=== PATIENT | male | born 1970 | race Caucasian/White ===

== ENCOUNTER → 2023-07-14 | Outpatient (CLI) | payer BC ==
--- NOTE | 2023-07-14 15:05 | MR ---
EXAM: MR liver wo/w con EXAM DATE AND TIME: HISTORY: Hyperbilirubinemia. PROCEDURE: Unenhanced and contrast enhanced, multiplanar, multisequence images were obtained through the abdomen and pelvis. CONTRAST: The IV contrast dose was 11 mL of gadobutrol. No immediate adverse reaction to the contras t material was reported. COMPARISON: None available. FINDINGS: IMAGED PORTION OF THE CHEST The imaged portion of the chest is unremarkable. ABDOMEN OVERVIEW: The images in this region are of adequate diagnostic quality. LIVER: There is diffuse loss of signal intensity on the T1 out of phase images when compared to t he in phase images compatible fatty liver infiltration. The liver is enlarged measuring 18.5 cm in cr aniocaudal dimension BILE DUCTS: Unremarkable. GALLBLADDER: Unremarkable. PANCREAS: Unremarkable. SPLEEN: Unremarkable. ADRENAL GLANDS: Unremarkable. RIGHT KIDNEY: Unremarkable. RIGHT URETER: Unremarkable. LEFT KIDNEY: Unremarkable. LEFT URETER: Unremarkable. ABDOMINAL AORTA: Unremarkable. ABDOMINAL VENOUS SYSTEM: Unremarkable. ABDOMINAL LYMPH NODES: Unremarkable. STOMACH: Unremarkable. SMALL BOWEL: Unremarkable. APPENDIX: Unremarkable. LARGE BOWEL: Unremarkable. MESENTERY AND OMENTUM: Unremarkable. PERITONEUM: Unremarkable. IMPRESSION 1. Mild hepatomegaly and mild hepatic steatosis. 2. No biliary ductal dilation. 3. No acute findings.
--- NOTE | 2023-07-14 18:13 | CA ---
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 18 - 58 / 22 - 52 cm??? LA Volume Index 26.6 cm???/m??? 16 - 28 cm???/m??? M-MODE Aortic Root Diameter MM 2.7 cm LA Systolic Diameter MM 4.0 cm LA Ao Ratio MM 1.5 AV Cusp Separation MM 2.1 cm DOPPLER AV Peak Velocity 139.9 cm/s AV Peak Gradient 7.8 mmHg AV Mean Velocity 100.5 cm/s AV Mean Gradient 4.4 mmHg AV Velocity Time Integral 24.9 cm LVOT Peak Velocity 135.2 cm/s LVOT Peak Gradient 7.3 mmHg LVOT Velocity Time Integral 25.1 cm MV Area PHT 3.2 cm??? Mitral E Point Velocity 87.4 cm/s Mitral A Point Velocity 100.0 cm/s Mitral E to A Ratio 0.9 MV Deceleration Time 233.8 ms MV E' Velocity 6.7 cm/s Mitral E to MV E' Ratio 13.1 FINDINGS Left Ventricle Severely increased left ventricular wall thickness. Left ventricular cavity size normal. Normal left ventricular systolic function with no obvious regional wall motion abnormalities. Left ventricular ejection fraction is estimated at 55-60 %. Grade 1 diastolic dysfunction. Right Ventricle Mild right ventricular dilatation. Right ventricular systolic pressure within normal limits. Right Atrium Normal right atrial size. Left Atrium Mildly increased left atrial volume. Interatrial septal aneurysm. Mitral Valve Structurally normal mitral valve. Mild mitral annular calcification. No mitral stenosis. Mild mitral regurgitation. Aortic Valve No aortic valve stenosis or regurgitation. Trileaflet aortic valve. Tricuspid Valve Structurally normal tricuspid valve. Mild tricuspid regurgitation. Pulmonic Valve Structurally normal pulmonic valve. Pericardium No pericardial effusion. Aorta Normal size aortic root and proximal ascending aorta. CONCLUSIONS Normal LV systolic function. Concentric left ventricular hypertrophy Normal pulmonary artery systolic pressure. Mildly dilated right ventricle Trileaflet aortic valve with no stenosis or regurgitation Normal mitral valve leaflets with mild MR Cannot rule out interatrial shunt Previewed by: Dr. Vargas Loving MD (Electronically Signed) Final Date: 14 July 2023 18:12
== END | disposition home or self-care (01) ==
LOC: RADECHMAIN 13:08
PROVIDERS: ATTEND Family Medicine
DX: K76.0 Fatty (change of) liver, not elsewhere classified (principal); I34.0 Nonrheumatic mitral (valve) insufficiency; E80.6 Other disorders of bilirubin metabolism; I45.10 Unspecified right bundle-branch block; I51.7 Cardiomegaly; R16.0 Hepatomegaly, not elsewhere classified
CPT/HCPCS: 93306; 74183; A9585

== ENCOUNTER 2024-11-23 23:54 | Emergency (ER) | payer BC ==
--- NOTE | 2024-11-24 01:17 | ED ---
General Adult HPI - General Chief complaint: Abdominal Pain Stated complaint: Abd Pain Time Seen by Provider: 11/24/24 00:27 Source: patient Mode of arrival: ambulatory Limitations: no limitations - History of Present Illness Initial comments: Patient is a previous healthy 54-year-old past medical history hypertension presenting today for left groin pain. Patient states he first noticed the pain on Monday after lifting wood. Described as sharp and as "a muscle spasm". It resolved spontaneously however today patient was lifting wood again and the pain returned. He denies any nausea, vomiting, fevers, chills, chest pain, shortness of breath, diarrhea, constipation, difficulty urinating, burning with urination or hematuria. The pain does not radiate to his testicles or penis. He has no prior abdominal surgeries. Took ibuprofen for pain without relief. No overlying skin changes. - Related Data Previous Rx's Medication Instructions Recorded Cyclobenzaprine [Flexeril] 10 mg PO TID PRN 5 Days #20 tab 11/24/24 Allergies Allergy/AdvReac Type Severity Reaction Status Date / Time No Known Allergies Allergy Verified 11/24/24 00:02 Review of Systems ROS Statement: Those systems with pertinent positive or pertinent negative responses have been documented in the HPI. ROS Other: All systems not noted in ROS Statement are negative. Past Medical History Past Medical History: Hypertension, Thyroid Disorder Additional Past Medical History / Comment(s): seasonal allergies History of Any Multi-Drug Resistant Organisms: None Reported Past Surgical History: Orthopedic Surgery Additional Past Surgical History / Comment(s): knee Past Psychological History: No Psychological Hx Reported Smoking Status: Never smoker Past Alcohol Use History: Occasional Past Drug Use History: Marijuana General Exam - General Exam Comments Initial Comments: PE: Limited as patient was seen in a hallway bed CONSTITUTIONAL: No apparent distress, well appearing SKIN: Warm, dry, no jaundice, hives or petechiae EYES: Pupils are equally round, extraocular movements intact without nystagmus, clear conjunctiva, non-icteric sclera HENT: Normocephalic, atraumatic, moist mucus membranes, oropharynx clear without exudates NECK: , Full range of motion, normal appearance PULMONARY: Clear to auscultation without wheezes, rhonchi, or rales, normal excursion, no accessory muscle use and no stridor CARDIOVASCULAR: Regular rate, rhythm, normal S1 and S2. No appreciated murmurs, rubs or gallops. Strong radial pulses with intact distal perfusion. No lower extremity edema GASTROINTESTINAL: Soft, active bowel sounds throughout, non-tender, non- distended, no palpable masses, no rebound or guarding. No hepatosplenomegaly left groin was examined I see no evidence of skin changes, no tenderness palpation, no bulging or palpable hernia GENITOURINARY: MUSCULOSKELETAL: Extremities have no gross deformity, no edema, redness, or swelling. NEUROLOGIC:_a/o x 3, GCS 15, normal mentation and speech. Moves all extremities x 4 without motor or sensory deficit PSYCHIATRIC:_normal mood and affect, thought process is clear and linear Limitations: no limitations Course Vital Signs 11/24/24 11/24/24 00:03 03:22 Temperature 97.9 F 97.8 F Pulse Rate 75 69 Respiratory 16 117 H Rate Blood Pressure 147/70 125/80 O2 Sat by Pulse 96 95 Oximetry Medical Decision Making - Medical Decision Making Was pt. sent in by a medical professional or institution (, PA, [employer], urgent care, hospital, or group home...) When possible be specific @ -No Did you speak to anyone other than the patient for history (EMS, parent, family, police, friend...)? What history was obtained from this source @ -No Did you review nursing and triage notes (agree or disagree)? Why? @ -I reviewed nursing and triage notes Were old charts reviewed (outside hosp., previous admission, EMS record, old EKG, old radiological studies, urgent care reports/EKG's, group home records)? Report findings @ -Medical records reviewed-Patient had a liver MRI done in 2023 which showed mild hepatomegaly and mild hepatic steatosis Differential Diagnosis (chest pain, altered mental status, abdominal pain women, abdominal pain men, vaginal bleeding, weakness, fever, dyspnea, syncope, headache, dizziness, GI bleed, back pain, seizure, CVA, palpatations, mental health, musculoskeletal)? @Differential Abdominal Pain Men: Appendicitis, cholecystitis, diverticulosis, ischemic bowel, pancreatitis, hepatitis, UTI, gastroenteritis, AAA, incarcerated hernia, bowel obstruction, constipation, inflammatory bowel, peptic ulcer disease, splenic infarction, perforated viscus, testicular torsion, this is not meant to be an all-inclusive list. Of note patient denies any pain or radiation of pain to his testicles or penis, therefore at this time I did not feel ultrasound was warranted to further evaluate for testicular torsion. Patient did decline testicular exam. EKG interpreted by me (3pts min.). @ -As above X-rays interpreted by me (1pt min.). @ -None done CT interpreted by me (1pt min.). Personally reviewed CT scan, I see no evidence of incarcerated hernia, bowel obstruction or perforation I agree with radiologist interpretation U/S interpreted by me (1pt. min.). @ -None done What testing was considered but not performed or refused? (CT, X-rays, U/S, labs)? Why? @ -None What meds were considered but not given or refused? Why? @ -None Did you discuss the management of the patient with other professionals (professionals i.e. , PA, [employer], lab, RT, psych nurse, social media marketing specialist, vice president financial, teacher, benefits officer, supervisor case loading)? Give summary @ -No Was smoking cessation discussed for >3mins.? @ -No Was critical care preformed (if so, how long)? @ -No Were there social determinants of health that impacted care today? How? (Homelessness, low income, unemployed, alcoholism, drug addiction, transport ation, low edu. Level, literacy, decrease access to med. care, fci, rehab)? @ -No Was there de-escalation of care discussed even if they declined (Discuss DNR or withdrawal of care, Hospice)? @ -No What co-morbidities impacted this encounter? (DM, HTN, Smoking, COPD, CAD, Cancer, CVA, ARF, Chemo, Hep., AIDS, mental health diagnosis, sleep apnea, morbid obesity)? @ -None Was patient admitted / discharged? Hospital course, mention meds given and route, prescriptions, significant lab abnormalities, going to OR and other pertinent info. @ -Discharged -patient is a pleasant 54-year-old gentleman, no prior surgical history presenting for left groin pain after lifting wood. Patient initially seen and assessed in hallway bed due to shortage of beds throughout the ER. He was agreeable with me performing assessment in the hallway. Exam was notable for no to tenderness palpation, bulging, swelling or skin changes overlying the left groin. Out of concern for possible hernia, due to provided history, will obtain CT abdomen pelvis, labs, lactic, patient will receive pain medications. Labs were reviewed and significant for mild leukocytosis white blood count 12.10, there is an elevation in neutrophils 8.76, urinalysis is negative nitrates and negative leukocyte esterase without bacteria, lactic within normal at 1.2, metabolic panel overall unremarkable CT was significant for bilateral fat-containing hernias otherwise no acute process. Updated patient to findings, did discuss with pt performing testicular exam to further evaluate his pain, however he politely declined. I discussed with patient signs and symptoms to monitor for warranting return to the ER such as redness or skin changes overlying the area of pain, failure pain to improve over the next 48 hours, fevers, vomiting or no bowel movement greater than 48 hours. He was agreeable and comfortable with plan for discharge. He was provided general surgery follow-up regarding fat-containing hernias noted on CT. In my medical judgment there is currently no evidence of an immediate life- threatening or surgical condition. Discharge is therefore indicated at this time. Discharge treatment instructions, follow up instructions, and appropriate emergency department return precautions were discussed with the patient and/or medical decision maker. Patient and/or medical decision maker expressed understanding of and agreed with the treatment plan, follow up instructions, and emergency department return precaution. All patient's and/or medical decision maker's questions were answered. The patient was advised that a small risk still exists that a serious condition could develop and was therefore instructed to return to the ED for any changes in symptoms, persistent symptoms, inability to obtain proper follow-up or for any further concerns. Patient received verbal and written instructions for this condition. Undiagnosed new problem with uncertain prognosis? @ -No Drug Therapy requiring intensive monitoring for toxicity (Heparin, Nitro, Insulin, Cardizem)? @ -No Were any procedures done? @ -No Diagnosis/symptom? Left inguinal pain, muscle strain, fat-containing inguinal hernias Acute, or Chronic, or Acute on Chronic? @ -Acute Uncomplicated (without systemic symptoms) or Complicated (systemic symptoms)? @Uncomplicated Side effects of treatment? @ -No Exacerbation, Progression, or Severe Exacerbation? @ -No Poses a threat to life or bodily function? How? (Chest pain, [place], [place], pneumonia, PE, COPD, DKA, ARF, appy, cholecystitis, CVA, Diverticulitis, Homicidal, Suicidal, threat to staff... and all critical care pts) @ -No - Lab Data Result diagrams: 11/24/24 01:20 11/24/24 01:20 Lab Results 11/24/24 11/24/24 11/24/24 Range/Units 01:20 01:20 01:20 WBC 12.10 H (4.50-10.00) 10*3/uL RBC 4.73 (4.40-5.60) 10*6/uL Hgb 14.5 (13.0-17.0) g/dL Hct 42.8 (39.6-50.0) % MCV 90.5 (80.0-97.0) fL MCH 30.7 (27.0-32.0) pg MCHC 33.9 (32.0-37.0) g/dL Plt Count 312 (140-440) 10*3/uL MPV 9.3 L (9.5-12.2) fL Immature Gran % (Auto) 0.6 % Neutrophils % 72.5 % Lymphocytes % 14.6 % Monocytes % 8.5 % Eosinophils % 3.1 % Basophils % 0.7 % Immature Gran # 0.07 H (0.00-0.04) 10*3/uL Neutrophils # 8.76 H (1.80-7.70) 10*3/uL Lymphocytes # 1.77 (0.90-5.00) 10*3/uL Monocytes # 1.03 H (0.20-1.00) 10*3/uL Eosinophils # 0.38 H (0.04-0.35) 10*3/uL Basophils # 0.09 (0.00-0.10) 10*3/uL PT 10.4 (10.0-12.5) sec INR 0.9 (<1.2) APTT 26.5 (22.0-30.0) sec Sodium (137-145) mmol/L Potassium (3.5-5.1) mmol/L Chloride (98-107) mmol/L Carbon Dioxide (22-30) mmol/L Anion Gap mmol/L BUN (9-20) mg/dL Creatinine (0.66-1.25) mg/dL Est GFR (CKD-EPI)AfAm (>60 ml/min/1.73 sqM) Est GFR (CKD-EPI)NonAf (>60 ml/min/1.73 sqM) Glucose (74-99) mg/dL Plasma Lactic Acid Julius (0.7-2.0) mmol/L Calcium (8.4-10.2) mg/dL Total Bilirubin (0.2-1.3) mg/dL AST (17-59) U/L ALT (4-49) U/L Alkaline Phosphatase (38-126) U/L Total Protein (6.3-8.2) g/dL Albumin (3.5-5.0) g/dL Amylase (30-110) U/L Lipase (23-300) U/L Urine Color Yellow Urine Appearance Cloudy (Clear) Urine pH 5.5 (5.0-8.0) Ur Specific [place] 1.031 (1.001-1.035) Urine Protein Trace H (Negative) Urine Glucose (UA) Negative (Negative) Urine Ketones Trace H (Negative) Urine Blood Negative (Negative) Urine Nitrite Negative (Negative) Urine Bilirubin Negative (Negative) Urine Urobilinogen 2.0 (<2.0) mg/dL Ur Leukocyte Esterase Negative (Negative) Urine RBC 2 (0-5) /hpf Urine WBC 4 (0-5) /hpf Calcium Oxalate Crystal Few H (None) /hpf Hyaline Casts 12 H (0-2) /lpf Urine Mucus Many H (None) /hpf Urine Yeast (Budding) Rare H (None) /hpf 11/24/24 11/24/24 Range/Units 01:20 01:20 WBC (4.50-10.00) 10*3/uL RBC (4.40-5.60) 10*6/uL Hgb (13.0-17.0) g/dL Hct (39.6-50.0) % MCV (80.0-97.0) fL MCH (27.0-32.0) pg MCHC (32.0-37.0) g/dL Plt Count (140-440) 10*3/uL MPV (9.5-12.2) fL Immature Gran % (Auto) % Neutrophils % % Lymphocytes % % Monocytes % % Eosinophils % % Basophils % % Immature Gran # (0.00-0.04) 10*3/uL Neutrophils # (1.80-7.70) 10*3/uL Lymphocytes # (0.90-5.00) 10*3/uL Monocytes # (0.20-1.00) 10*3/uL Eosinophils # (0.04-0.35) 10*3/uL Basophils # (0.00-0.10) 10*3/uL PT (10.0-12.5) sec INR (<1.2) APTT (22.0-30.0) sec Sodium 138 (137-145) mmol/L Potassium 4.2 (3.5-5.1) mmol/L Chloride 102 (98-107) mmol/L Carbon Dioxide 24 (22-30) mmol/L Anion Gap 12 mmol/L BUN 19 (9-20) mg/dL Creatinine 0.70 (0.66-1.25) mg/dL Est GFR (CKD-EPI)AfAm >90 (>60 ml/min/1.73 sqM) Est GFR (CKD-EPI)NonAf >90 (>60 ml/min/1.73 sqM) Glucose 117 H (74-99) mg/dL Plasma Lactic Acid Julius 1.2 (0.7-2.0) mmol/L Calcium 9.4 (8.4-10.2) mg/dL Total Bilirubin 1.0 (0.2-1.3) mg/dL AST 28 (17-59) U/L ALT 19 (4-49) U/L Alkaline Phosphatase 130 H (38-126) U/L Total Protein 7.1 (6.3-8.2) g/dL Albumin 4.2 (3.5-5.0) g/dL Amylase 46 (30-110) U/L Lipase 123 (23-300) U/L Urine Color Urine Appearance (Clear) Urine pH (5.0-8.0) Ur Specific [place] (1.001-1.035) Urine Protein (Negative) Urine Glucose (UA) (Negative) Urine Ketones (Negative) Urine Blood (Negative) Urine Nitrite (Negative) Urine Bilirubin (Negative) Urine Urobilinogen (<2.0) mg/dL Ur Leukocyte Esterase (Negative) Urine RBC (0-5) /hpf Urine WBC (0-5) /hpf Calcium Oxalate Crystal (None) /hpf Hyaline Casts (0-2) /lpf Urine Mucus (None) /hpf Urine Yeast (Budding) (None) /hpf Disposition Clinical Impression: Left inguinal pain, Muscle strain Disposition: HOME SELF-CARE Condition: Good Instructions (If sedation given, give patient instructions): Groin Pain (ED) Additional Instructions: Every disease is a spectrum and a small chance still exists that a serious condition could develop, for this reason, please monitor yourself closely for new, changing or worsening symptoms, symptoms that persist beyond 48 hours/fails to improve over the next 48 hours, uncontrolled pain, redness or skin changes overlying the area of pain, no bowel movement for greater than 48 hours, pain with associated vomiting, fever, inability to tolerate/keep down fluids or your medications, inability to follow up with outpatient providers as instructed and should you experience these symptoms or should you have any further concerns for your wellbeing please return to the ED or call 911 immediately. Please do not lift anything heavier than 10 pounds for the next week. Your pain can be treated with ibuprofen and acetaminophen. You can take up to 400-600 mg of ibuprofen (Advil, Motrin) 3 times daily (every 8 hours) but can also use lower doses if this relieves your pain. Some people prefer naproxen (Aleve, Naprosyn) which can be taken in doses of 500 mg up to twice a day. Do not take both of these medicines together, and do not combine either with ketorolac (Toradol), meloxicam (Mobic), or indomethacin (Tivorbex). Some people can develop stomach discomfort with higher doses of either ibuprofen or n aproxen, if this develops decrease your dose or stop taking it. If you need to take this dose daily for more than a week, please schedule an appointment for re-evaluation with your PCP. Please take these medications with food. If you are taking a blood thinner (i.e. Eliquis, Xarelto, Plavix, Warfarin/Coumadin, etc), DO NOT TAKE NSAIDS. They will increase your risk for bleeding. You make take acetaminophen for pain and/or any other medications prescribed by your doctor. You can take up to 1000 mg of acetaminophen (Tylenol) every 6 hours. Be careful as this is included in some medicines like Nyquil, [place], Percocet, Vicodin, STANBACK, Goody's Powders, and Excedrin. You can also use lidocaine patches for topical pain. You can purchase 4% patches over the counter at most drug stores. These can be helpful for pain from your muscles or bones. Please follow up with Dr. Barone, general surgery, regarding fat containing hernias. PLEASE call your primary care physician as soon as possible to arrange / discuss plan for followup appointment. Appointment in the next 1-3 days is strongly en couraged if possible. PLEASE let us know here before you leave if there is anything further we can do to be of any assistance. Take care and feel Better! Prescriptions: Cyclobenzaprine [Flexeril] 10 mg PO TID PRN 5 Days #20 tab PRN Reason: Muscle Spasm Is patient prescribed a controlled substance at d/c from ED?: No Referrals: Matthieu Lentz MD [Primary Care Provider] - 1-2 days Alberto Barone DO [Doctor of Osteopathic Medicine] - 1-2 days
[2024-11-24] MEDS: SODIUM CHLORIDE 0.9% 1,000 ML IV ONE (01:26)
[2024-11-24] MEDS: ONDANSETRON 4 MG/2 ML VIAL IVP STA (01:26)
[2024-11-24] MEDS: KETOROLAC 15 MG/ML 1 ML VIAL IVP STA (01:26)
[2024-11-24] MEDS: MORPHINE SULFATE 4 MG/ML SYRINGE IVP STA (01:27)
[2024-11-24 01:58] LABS: Basophils # (A) 0.09 10*3/uL (0.00-0.10); Basophils % (A) 0.7 %; Eosinophils # (A) 0.38 10*3/uL (0.04-0.35); Eosinophils % (A) 3.1 %; HCT 42.8 % (39.6-50.0); HGB 14.5 g/dL (13.0-17.0); Lymphocytes # (A) 1.77 10*3/uL (0.90-5.00); Lymphocytes % (A) 14.6 %; MCH 30.7 pg (27.0-32.0); MCHC 33.9 g/dL (32.0-37.0); MCV 90.5 fL (80.0-97.0); Monocytes # (A) 1.03 10*3/uL (0.20-1.00); Monocytes % (A) 8.5 %; Neutrophils # (A) 8.76 10*3/uL (1.80-7.70); Neutrophils % (A) 72.5 %; Platelet Count 312 10*3/uL (140-440); RBC 4.73 10*6/uL (4.40-5.60); RDW 13.5 % (11.5-14.5); WBC 12.10 10*3/uL (4.50-10.00)
[2024-11-24 02:12] LABS: ALT 19 U/L (4-49); AST 28 U/L (17-59); African American GFR (CKD) >90 (>60 ml/min/1.73 sqM); Albumin 4.2 g/dL (3.5-5.0); Alkaline Phosphatase 130 U/L (38-126); Amylase 46 U/L (30-110); Anion Gap 12 mmol/L; Blood Urea Nitrogen 19 mg/dL (9-20); Calcium 9.4 mg/dL (8.4-10.2); Carbon Dioxide 24 mmol/L (22-30); Chloride 102 mmol/L (98-107); Glucose 117 mg/dL (74-99); Lipase 123 U/L (23-300); Non-African American GFR(CKD) >90 (>60 ml/min/1.73 sqM); Potassium 4.2 mmol/L (3.5-5.1); Sodium 138 mmol/L (137-145); Total Protein 7.1 g/dL (6.3-8.2)
[2024-11-24 02:21] LABS: Bilirubin,Urine Negative (Negative); Blood,Urine Negative (Negative); Budding Yeast,Urine Rare /hpf; Calcium Oxalate Crystals,Urine Few /hpf; Color,Urine Yellow; Glucose,Urine (UA) Negative (Negative); Hyaline Casts,Urine 12 /lpf (0-2); Ketones,Urine Trace (Negative); Leukocyte Esterase,Urine Negative (Negative); Mucus,Urine Many /hpf; Nitrite,Urine Negative (Negative); PH, Urine 5.5 (5.0-8.0); Protein,Urine Trace (Negative); RBC,Urine 2 /hpf (0-5); Specific Gravity,Urine 1.031 (1.001-1.035); Urobilinogen,Urine 2.0 mg/dL (<2.0); WBC,Urine 4 /hpf (0-5)
[2024-11-24 02:33] LABS: INR 0.9 (<1.2); Partial Thromboplastin Time 26.5 sec (22.0-30.0); Prothrombin Time 10.4 sec (10.0-12.5)
--- NOTE | 2024-11-24 02:41 | CT ---
EXAM: CT Abdomen and Pelvis With Intravenous Contrast CLINICAL HISTORY: ITS.REASON CT Reason: LLQ/groin pain, hernia? TECHNIQUE: Axial computed tomography images of the abdomen and pelvis with intravenous contrast. CTDI is 27 mGy and DLP is 2218.2 mGy-cm. This CT exam was performed using one or more of the following dose reduction techniques: automated exposure control, adjustment of the mA and/or kV according to patient size, and/or use of iterative reconstruction technique. COMPARISON: No relevant prior studies available. FINDINGS: Lung bases: Unremarkable. No mass. No consolidation. ABDOMEN: Liver: Unremarkable. No mass. Gallbladder and bile ducts: Unremarkable. No calcified stones. No ductal dilation. Pancreas: Unremarkable. No mass. No ductal dilation. Spleen: Unremarkable. No splenomegaly. Adrenals: Unremarkable. No mass. Kidneys and ureters: Unremarkable. No solid mass. No hydronephrosis. Stomach and bowel: Unremarkable. No obstruction. No mucosal thickening. PELVIS: Appendix: No findings to suggest acute appendicitis. Bladder: Unremarkable. No mass. Reproductive: Unremarkable as visualized. ABDOMEN and PELVIS: Intraperitoneal space: Unremarkable. No free air. No significant fluid collection. Bones/joints: No acute fracture. No dislocation. Soft tissues: Fat containing bilateral inguinal hernias. Vasculature: Unremarkable. No abdominal aortic aneurysm. Lymph nodes: Unremarkable. No enlarged lymph nodes. IMPRESSION: No acute findings in the abdomen or pelvis.
[2024-11-24] MEDS: ORPHENADRINE 30 MG/ML 2 ML VIAL IVP STA (03:06)
[2024-11-24 03:24] VITALS: BP 125/80; PULSE 69; RESP 117; TEMP 97.8
== END 2024-11-24 03:24 | disposition home or self-care (01) ==
LOC: EC 23:54
DX: K40.90 Unilateral inguinal hernia, without obstruction or gangrene, not specified as recurrent (principal); T14.8XXA Other injury of unspecified body region, initial encounter
CPT/HCPCS: 99285; 96374; 96375; 96361 ×2; 36415; 80053; 82150; 83605; 83690; 85025; 85610; 85730; 81001; 74177; J2270; J2360; J2405; J1885; Q9967